=== PATIENT | male | born 1980 | race Caucasian/White ===

== ENCOUNTER 2016-10-07 19:29 | Emergency (ER) | payer BC, OTHER ==
[2016-10-07] MEDS ORDERED: Ketorolac Tromethamine 60 MG/2 ML VIAL ONE (20:36)
[2016-10-07] MEDS ORDERED: HYDROcodone/Acetaminophen 10/325 mg Tablet ONE (20:36)
--- NOTE | 2016-10-07 21:40 | RAD ---
CHEST TWO VIEWS 10/07/16 Comparison is made with a 09/10/15 study from [facility]. The heart is normal in size. No lobar infiltrate or effusion was seen. At most, there may be a littl e bit of coarsening of the basilar lung markings behind the heart on the lateral view. Otherwise, th e lungs are clear. The mediastinum appears normal and the trachea is midline. IMPRESSION: At most, minor accentuation of retrocardiac markings. This may or may not be significant. POS: HOME
== END 2016-10-07 21:00 | disposition home or self-care (01) ==
LOC: BURERS 19:29
DX: R07.89 Other chest pain (principal)
CPT/HCPCS: 71020; 93005; 96372; J1885

== ENCOUNTER 2018-06-30 19:41 | Emergency (ER) | payer SELFPAY ==
[2018-06-30 20:06] LABS: Bilirubin Negative (Negative); Blood, Urine Negative (Negative); Clarity Cloudy (Clear); Glucose, Urine (Dipstick) Negative (Negative); Leukocyte Negative (Negative); Nitrite Negative (Negative); Protein, Urine (Dipstick) Negative (Neg-Trace); Urobilinogen 0.2 mg/dL (0.2-1.0); pH, Urine 7.5 (5.0-9.0)
[2018-06-30] MEDS ORDERED: Dicyclomine 20 MG TAB ONE (20:18)
[2018-06-30 20:31] LABS: #Basophils 0.2 thou/uL (0.0-0.2); #Eosinphils 1.2 thou/uL (0.0-0.7); #Lymphocytes 1.6 thou/uL (1.20-3.40); #Monocytes 1.1 thou/uL (0.11-0.59); #Neutrophils 4.8 thou/uL (1.40-6.50); %Basophils 2.1 % (0.0-1.0); %Eosinophils 13.8 % (0.0-10.0); %Lymphocytes 18.3 % (21.0-51.0); %Neutrophils 53.8 % (42.0-75.0); Hemoglobin 15.5 g/dL (14.0-18.0); Mean Corpuscular HGB CONC 36.3 g/dL (32.0-36.0); Mean Corpuscular Hemoglobin 32.2 pg (27.0-31.0); Mean Corpuscular Volume 88.8 fL (78.0-98.0); Mean Platelet Volume 6.6 fL (7.4-10.4); Platelet Count 230 thou/uL (130-400); RBC Distribution Width 11.6 % (11.5-14.5); Red Blood Cell (RBC) Count 4.82 mill/uL (4.70-6.10); White Blood Cell (WBC) Count 8.9 thou/uL (4.8-10.8)
[2018-06-30 20:44] LABS: ALT (SGPT) 12 U/L (8-55); AST (SGOT) 10 U/L (5-34); Albumin 3.8 g/dL (3.5-5.0); Alkaline Phosphatase 72 U/L (40-150); Anion Gap 12 mmol/L (10-20); BUN (Urea Nitrogen) 9 mg/dL (8.9-20.6); Bilirubin, Total 0.4 mg/dL (0.2-1.2); Calc. Creatinine Clearance 0 mL/min (70-130); Calcium 9.4 mg/dL (7.8-10.44); Carbon Dioxide 28 mmol/L (22-29); Chloride 105 mmol/L (98-107); Estimated GFR-MDRD 85; Glucose 102 mg/dL (70-105); Lipase 22 U/L (8-78); Potassium 4.1 mmol/L (3.5-5.1); Protein, Total 6.8 g/dL (6.0-8.3); Sodium 141 mmol/L (136-145)
[2018-06-30] MEDS ORDERED: Ciprofloxacin 500 MG TAB ONE (21:07)
== END 2018-06-30 21:16 | disposition home or self-care (01) ==
LOC: BURERS 19:41
DX: R10.30 Lower abdominal pain, unspecified (principal); R19.7 Diarrhea, unspecified; F41.9 Anxiety disorder, unspecified; F17.210 Nicotine dependence, cigarettes, uncomplicated
CPT/HCPCS: 36415; 80053; 81003; 83690; 85025; 99284